=== PATIENT | female | born 1940 | race Caucasian/White ===

== ENCOUNTER → 2021-01-25 | Day surgery (SDC) | payer MEDICARE, OTHER ==
[~2021-01-25] VITALS: Ht 157.5 cm; Wt 58.5 kg
[~2021-01-25] MED LIST: ASCO-339 GT; CHLORHEXIDINE TOP; CLON1PAT11 TD; DOCU50LI25 GT; FLUT15.844 BOTHNSTRLS; INSU100I19 SQ; INSU3INS8 SUBCUT; IPRATROPIUM/ALBUTEROL 0.5-3(2.5)MG/3ML NEB HHN NR; IPRATROPIUM/ALBUTEROL 0.5-3(2.5)MG/3ML NEB ONE; LORA10TA7 GT; PROPOFOL 200MG/20ML VIAL IV ONE; SODIUM CHLORIDE 0.9% 1,000 ML IV SCH; TRIC160 GT
[2021-01-25 07:58] LABS: BASOPHILS % 0.2 % (0.0-2.0); EOSINOPHILS % 4.4 % (0.0-5.0); HEMATOCRIT. 42.9 % (36.0-48.0); HEMOGLOBIN. 14.4 g/dL (12.0-16.0); LYMPHOCYTES % 18.8 % (20.0-50.0); MEAN CORPUSCULAR HEMOGLOBIN 29.1 pg (28.0-32.0); MEAN CORPUSCULAR VOLUME 86.6 fL (81.0-99.0); MEAN PLATELET VOLUME 9.3 fl (7.4-10.4); MONOCYTES % 9.9 % (2.0-8.0); NEUTROPHILS % 66.7 % (40.0-76.0); PLATELET 323 x1000/uL (130-400); RED BLOOD CELL COUNT 4.96 mill/uL (4.2-5.4); RED CELL DISTRIBUTION WIDTH 13.7 % (11.6-14.6)
[2021-01-25 08:03] LABS: CHLORIDE 106 mEq/L (98-107)
== END | disposition home or self-care (01) ==
LOC: OR 07:17
PROVIDERS: ATTEND Internal Medicine Gastroenterology
DX: K94.23 Gastrostomy malfunction (principal); R13.12 Dysphagia, oropharyngeal phase; E11.9 Type 2 diabetes mellitus without complications; E78.5 Hyperlipidemia, unspecified; I11.0 Hypertensive heart disease with heart failure; I50.9 Heart failure, unspecified; K29.50 Unspecified chronic gastritis without bleeding; R47.9 Unspecified speech disturbances; F72 Severe intellectual disabilities; Z98.890 Other specified postprocedural states; Z79.899 Other long term (current) drug therapy; Z79.4 Long term (current) use of insulin; Z88.8 Allergy status to other drugs, medicaments and biological substances; Z20.822 Contact with and (suspected) exposure to COVID-19
CPT/HCPCS: 36415; 43246; 80048; 85025; 87426; 93005; 94640; C1893; J2704